=== PATIENT | male | born 1960 | race Caucasian/White ===

== ENCOUNTER 2025-05-05 17:53 | Emergency (ER) | payer OTHER ==
[~2025-05-05] VITALS: Ht 180.3 cm; Wt 63.5 kg
[~2025-05-05 17:53] MED LIST: CEPH-570 PO
[2025-05-05 20:58] LABS: PLATELET COUNT (AUTO) 335 K/uL (150-450); RED BLOOD CELL COUNT(AUTO) 4.40 MIL/uL (4.5-6.0); RED CELL DISTRIBUTION WIDTH 13.7 % (11.5-15.0); WHITE BLOOD COUNT (AUTO) 5.4 K/uL (4.3-11.0)
[2025-05-05 21:00] LABS: CALCIUM, SERUM 8.5 mg/dL (8.5-10.1); CREATININE 1.0 mg/dL (0.6-1.3); SODIUM SERUM 141 mmol/L (136-145); UREA NITROGEN, BLOOD 17 mg/dL (7-18)
[2025-05-05 21:08] LABS: ASPARTATE AMINOTRANSFERASE 20 U/L (15-37); TOTAL PROTEIN, SERUM 6.5 g/dL (6.4-8.2)
[2025-05-05 21:10] LABS: APPEARANCE,URINE CLEAR (CLEAR); BLOOD, URINE NEGATIVE Ery/uL (NEGATIVE); LEUKOCYTE ESTERASE ,URINE NEGATIVE (NEGATIVE); NITRITE, URINE NEGATIVE (NEGATIVE); UGLUCOSE NEGATIVE (NEGATIVE)
[2025-05-05 21:24] LABS: CALCIUM OXALATE CRYSTALS,UR Many /HPF (None Seen)
[2025-05-05 21:25] LABS: ADD URINE CULTURE NO; SQUAMOUS EPITHELIAL CELL,UR None Seen /HPF (None Seen)
[2025-05-05 21:26] LABS: BARBITURATE, URINE NEGATIVE (NEGATIVE); BENZODIAZEPINE, URINE NEGATIVE (NEGATIVE); COCCAINE, URINE NEGATIVE (NEGATIVE); OPIATE, URINE NEGATIVE (NEGATIVE)
[2025-05-05 21:28] LABS: AMPHETAMINE, URINE POSITIVE (NEGATIVE); CANNABINOID, URINE POSITIVE (NEGATIVE)
[2025-05-06 01:50] VITALS: BP 122/78; TEMP 97.9; O2SAT 97
== END 2025-05-06 01:51 ==
LOC: ER 18:01
DX: F41.9 Anxiety disorder, unspecified (principal); F20.9 Schizophrenia, unspecified; F32.A Depression, unspecified; Z79.899 Other long term (current) drug therapy; Z90.49 Acquired absence of other specified parts of digestive tract; Z90.89 Acquired absence of other organs; Z20.822 Contact with and (suspected) exposure to COVID-19
CPT/HCPCS: 36415; 80048-TC; 80076-TC; 81001; 85025-TC

== ENCOUNTER 2025-05-31 16:06 | Emergency (ER) | payer OTHER ==
[~2025-05-31] VITALS: Ht 180.3 cm; Wt 59.0 kg
[2025-05-31 16:50] LABS: PLATELET COUNT (AUTO) 295 K/uL (150-450); RED BLOOD CELL COUNT(AUTO) 4.65 MIL/uL (4.5-6.0); RED CELL DISTRIBUTION WIDTH 13.8 % (11.5-15.0); WHITE BLOOD COUNT (AUTO) 4.5 K/uL (4.3-11.0)
[2025-05-31 17:00] LABS: CALCIUM, SERUM 8.6 mg/dL (8.5-10.1); CREATININE 1.1 mg/dL (0.6-1.3); SODIUM SERUM 140 mmol/L (136-145); UREA NITROGEN, BLOOD 15 mg/dL (7-18)
[2025-05-31 17:06] LABS: ASPARTATE AMINOTRANSFERASE 25 U/L (15-37); TOTAL PROTEIN, SERUM 7.3 g/dL (6.4-8.2)
[2025-05-31 17:36] LABS: APPEARANCE,URINE CLEAR (CLEAR); BLOOD, URINE NEGATIVE Ery/uL (NEGATIVE); LEUKOCYTE ESTERASE ,URINE NEGATIVE (NEGATIVE); NITRITE, URINE NEGATIVE (NEGATIVE); UGLUCOSE NEGATIVE (NEGATIVE)
[2025-05-31 17:45] LABS: AMPHETAMINE, URINE NEGATIVE (NEGATIVE); BARBITURATE, URINE NEGATIVE (NEGATIVE); COCCAINE, URINE NEGATIVE (NEGATIVE); OPIATE, URINE NEGATIVE (NEGATIVE)
[2025-05-31 18:05] LABS: BENZODIAZEPINE, URINE POSITIVE (NEGATIVE); CANNABINOID, URINE POSITIVE (NEGATIVE)
[2025-05-31 18:40] LABS: URINE AMORPHOUS URATE Moderate /HPF (None Seen)
[2025-05-31 18:42] LABS: ADD URINE CULTURE NO; SQUAMOUS EPITHELIAL CELL,UR Rare /HPF (None Seen)
[2025-05-31 21:23] VITALS: BP 131/87; TEMP 98; O2SAT 98
== END 2025-05-31 21:23 | disposition home or self-care (01) ==
LOC: ER 16:25
DX: F32.A Depression, unspecified (principal); Z90.49 Acquired absence of other specified parts of digestive tract; Z90.89 Acquired absence of other organs; R45.851 Suicidal ideations; Z79.899 Other long term (current) drug therapy; Z60.2 Problems related to living alone
CPT/HCPCS: 36415; 80048-TC; 80076-TC; 81001; 85025-TC; 98960

== ENCOUNTER 2025-05-31 22:37 | Emergency (ER) | payer OTHER ==
[~2025-05-31] VITALS: Ht 172.7 cm; Wt 72.6 kg
[2025-05-31 23:42] LABS: APPEARANCE,URINE CLEAR (CLEAR); BLOOD, URINE NEGATIVE Ery/uL (NEGATIVE); LEUKOCYTE ESTERASE ,URINE NEGATIVE (NEGATIVE); NITRITE, URINE NEGATIVE (NEGATIVE); UGLUCOSE NEGATIVE (NEGATIVE)
[2025-05-31 23:46] LABS: RED CELL DISTRIBUTION WIDTH 13.9 % (11.5-15.0); WHITE BLOOD COUNT (AUTO) 5.0 K/uL (4.3-11.0)
[2025-05-31 23:52] LABS: CALCIUM, SERUM 8.7 mg/dL (8.5-10.1); CREATININE 1.1 mg/dL (0.6-1.3); SODIUM SERUM 137 mmol/L (136-145); UREA NITROGEN, BLOOD 29 mg/dL (7-18)
[2025-05-31 23:59] LABS: ALCOHOL, BLOOD < 3 mg/dL (0-10); ASPARTATE AMINOTRANSFERASE 21 U/L (15-37); TOTAL PROTEIN, SERUM 6.8 g/dL (6.4-8.2)
[2025-06-01 00:02] LABS: PLATELET COUNT (AUTO) 295 K/uL (150-450); RED BLOOD CELL COUNT(AUTO) 4.48 MIL/uL (4.5-6.0)
[2025-06-01 00:15] VITALS: BP 134/91; TEMP 98.4; O2SAT 98
[2025-06-01 00:43] LABS: ADD URINE CULTURE NO; SQUAMOUS EPITHELIAL CELL,UR 0-2 /HPF (None Seen)
[2025-06-01 01:21] LABS: AMPHETAMINE, URINE NEGATIVE (NEGATIVE); BARBITURATE, URINE NEGATIVE (NEGATIVE); COCCAINE, URINE NEGATIVE (NEGATIVE); OPIATE, URINE NEGATIVE (NEGATIVE)
[2025-06-01 01:22] LABS: BENZODIAZEPINE, URINE POSITIVE (NEGATIVE); CANNABINOID, URINE POSITIVE (NEGATIVE)
== END 2025-06-01 00:04 | disposition left against medical advice (07) ==
LOC: ER 22:40
DX: F32.A Depression, unspecified (principal); Z90.49 Acquired absence of other specified parts of digestive tract; Z90.89 Acquired absence of other organs; Z53.1 Procedure and treatment not carried out because of patient's decision for reasons of belief and group pressure; Z79.899 Other long term (current) drug therapy
CPT/HCPCS: 36415; 80053-TC; 81001; 85025-TC; G0480